=== PATIENT | female | born 1985 ===

== ENCOUNTER 2018-12-18 06:50 | Day surgery (SDC) | payer OTHER ==
[2018-12-18] MEDS ORDERED: PERCOCET 5-3251 EACH PO (11:52)
== END 2018-12-18 15:50 | disposition home or self-care (01) ==
LOC: CIR.AMB 06:50
DX: N87.9 Dysplasia of cervix uteri, unspecified (principal); N72 Inflammatory disease of cervix uteri; N70.11 Chronic salpingitis; N73.6 Female pelvic peritoneal adhesions (postinfective)